=== PATIENT | female | born 2000 | race Caucasian/White ===

== ENCOUNTER 2023-02-01 21:05 | Emergency (ER) | payer OTHER, SELFPAY ==
[2023-02-02] MEDS ORDERED: Amoxicillin/Potassium Clav 875 MG TAB ONE (00:33)
[2023-02-02] MEDS ORDERED: Acetaminophen 500 MG TAB ONE (01:45)
== END 2023-02-02 01:51 | disposition home or self-care (01) ==
LOC: CSHERS 21:05
DX: S30.871A Other superficial bite of abdominal wall, initial encounter (principal); S60.472A Other superficial bite of right middle finger, initial encounter; S60.470A Other superficial bite of right index finger, initial encounter; W54.0XXA Bitten by dog, initial encounter